=== PATIENT | female | born 2000 | race Caucasian/White ===

== ENCOUNTER 2024-12-30 00:25 | Inpatient (IN) | payer OTHER ==
[2024-12-30] MEDS ORDERED: Water For Irrigation,Sterile 1,000 ML Container IRR PRN (00:36)
[2024-12-30] MEDS ORDERED: Sodium Chloride 0.9% 2.5 ML Syringe FLUSH PRN (00:36)
[2024-12-30] MEDS ORDERED: Sodium Chloride 0.9% 10 ML Syringe FLUSH PRN (00:36)
[2024-12-30] MEDS ORDERED: Terbutaline 1 MG/ML SDV SUBCUT PRN (00:36)
[2024-12-30] MEDS ORDERED: Butorphanol 1 MG/ML SDV IVPUSH PRN (00:36)
[2024-12-30] MEDS ORDERED: Carboprost Tromethamine 250 MCG/1 mL Vial IM PRN (00:36)
[2024-12-30] MEDS ORDERED: Nalbuphine 10 MG/1 ML Vial IVPUSH ONE (00:41)
[2024-12-30] MEDS ORDERED: Oxytocin/0.9 % Sodium Chloride 30 UNIT/500 ML BAG IV SCH (00:45)
[2024-12-30] MEDS ORDERED: Misoprostol 25 MCG (1/4 of 100 MCG) Tab PO PRN (00:47)
[2024-12-30] MEDS: Lactated Ringers 1,000 ML IV SCH (02:14)
[2024-12-30 02:15] LABS: MEAN PLATELET VOLUME 9.5 fL (9.4-12.3); NRBC ABSOLUTE 0.00 K/uL (0.00-0.02); NRBC PERCENT 0.0 /100WBC (0.0-0.2); PLATELET COUNT,PLT 174 K/uL (150-400); RED BLOOD CELL COUNT 4.47 M/uL (4.10-5.30); WHITE BLOOD CELL COUNT,WBC 8.01 K/uL (3.9-11.3)
[2024-12-30] MEDS: Oxytocin/0.9 % Sodium Chloride 30 UNIT/500 ML BAG IV SCH (03:46)
[2024-12-30] MEDS: Ropivacaine HCl/PF 400 MG in Premix Bag 1 BAG EPIDUR SCH (04:58)
[2024-12-30] MEDS ORDERED: ePHEDrine 50 MG/ML SDV IVPUSH PRN (05:02)
[2024-12-30] MEDS ORDERED: dexmedeTOMIDine HCl 200 MCG/2 ML SDV EPIDUR SCH (05:15)
[2024-12-30] MEDS: Ropivacaine HCl/PF 200 ML ONE (06:09)
[2024-12-30] MEDS: dexmedeTOMIDine HCl 200 MCG/2 ML SDV ONE (06:09)
[2024-12-30] MEDS: Misoprostol 25 MCG (1/4 of 100 MCG) Tab PO ONE (06:10)
[2024-12-30] MEDS: Ondansetron 4 MG/2 ML SDV IVPUSH PRN (07:25)
[2024-12-30] MEDS ORDERED: Benzocaine/Menthol 20%-0.5% Spray 78 GM Cannister TOP PRN (15:44)
[2024-12-30] MEDS ORDERED: Witch Hazel Medicated Pads 40/Jar TOP PRN (15:44)
[2024-12-30] MEDS ORDERED: Lanolin 100% Cream 7 GM Tube TOP PRN (15:44)
[2024-12-30 16:26] LABS: PH,UMBILICAL ARTERIAL 7.3 (7.18-7.38); PH,UMBILICAL VENOUS 7.39 (7.25-7.45)
[2024-12-31 05:36] LABS: MEAN PLATELET VOLUME 9.4 fL (9.4-12.3); NRBC ABSOLUTE 0.00 K/uL (0.00-0.02); NRBC PERCENT 0.0 /100WBC (0.0-0.2); PLATELET COUNT,PLT 150 K/uL (150-400); RED BLOOD CELL COUNT 4.26 M/uL (4.10-5.30); WHITE BLOOD CELL COUNT,WBC 10.56 K/uL (3.9-11.3)
[2024-12-31] MEDS ORDERED: Prenatal Multivitamin with Calcium/Folic Acid/Iron Tab PO SCH ×2 (08:00→09:00)
== END 2024-12-31 17:40 | disposition home or self-care (01) | DRG 807 ==
LOC: MW.OB 00:25 → OBSVTOIN 15:16 → MW.OB 15:16
PROVIDERS: ADMIT Obstetrics & Gynecology; ATTEND Obstetrics & Gynecology
PROC: 10E0XZZ Delivery of Products of Conception, External Approach (ICD-10-PCS; principal; 2024-12-30)
PROC: 3E033VJ Introduction of Other Hormone into Peripheral Vein, Percutaneous Approach (ICD-10-PCS; 2024-12-30)
PROC: 10907ZC Drainage of Amniotic Fluid, Therapeutic from Products of Conception, Via Natural or Artificial Opening (ICD-10-PCS; 2024-12-30)
PROC: 3E0R3BZ Introduction of Anesthetic Agent into Spinal Canal, Percutaneous Approach (ICD-10-PCS; 2024-12-30)
DX: O99.824 Streptococcus B carrier state complicating childbirth (principal); Z37.0 Single live birth; O70.0 First degree perineal laceration during delivery; O99.02 Anemia complicating childbirth; O99.214 Obesity complicating childbirth; Z79.899 Other long term (current) drug therapy; Z91.040 Latex allergy status; Z3A.39 39 weeks gestation of pregnancy
CPT/HCPCS: 36415; 51702; 59025; 59409; 82803; 85027; 86592; 86850; 86900; 86901; A9270-GY; J0290; J2371; J2405; J2590; J2795; J7120